=== PATIENT | female | born 1990 | race African-American/Black ===

== ENCOUNTER 2020-01-24 06:12 | Inpatient (IN) | payer MEDICAID ==
[~2020-01-24] VITALS: Ht 152.4 cm; Wt 84.8 kg
[2020-01-24] MEDS ORDERED: TERBUTALINE 1 MG/ML VIAL. SQ PRN (06:15)
[2020-01-24] MEDS ORDERED: BUTORPHANOL 2 MG/ML VIAL. IVP PRN (06:15)
[2020-01-24] MEDS ORDERED: ACETAMINOPHEN 325 MG TABLET. PO PRN ×2 (06:15→20:15)
[2020-01-24] MEDS ORDERED: 0.9 % SODIUM CHLORIDE 10 ML DISP.SYRIN. IV PRN ×2 (06:15→20:15)
[2020-01-24] MEDS ORDERED: OXYTOCIN 30 UNIT/500 ML PREMIX 500 ML IV PRN ×3 (06:15→20:15)
[2020-01-24] MEDS ORDERED: LIDOCAINE 1% PF 30 ML VIAL. INJ PRN (06:15)
[2020-01-24] MEDS: IV RINGERS,LACTATED 1000ML 1,000 ML IV SCH ×2 (07:47→11:45)
[2020-01-24 08:06] LABS: BASO % 0 % (0-3); EOS # 0.1 x10^3/uL (0.0-0.7); EOS % 2 % (0-3); HEMATOCRIT 34.7 % (36.0-47.0); LYMPH # 1.2 x10^3/uL (1.0-4.8); LYMPH % 15 % (24-48); MEAN CORPUSCULAR HEMOGLOBIN 24 pg (25-35); MEAN CORPUSCULAR HGB CONC 32 g/dL (31-37); MEAN CORPUSCULAR VOLUME 74 fL (79-100); MONO # 0.8 x10^3/uL (0.0-1.1); MONO % 10 % (0-9); NEUT # 5.5 x10^3/uL (1.8-7.7); NEUT % 72 % (31-73); PLATELET COUNT 155 x10^3/uL (140-400); RED BLOOD COUNT 4.69 x10^6/uL (3.50-5.40); RED CELL DISTRIBUTION WIDTH 14.1 % (11.5-14.5); WHITE BLOOD COUNT 7.6 x10^3/uL (4.0-11.0)
--- NOTE | 2020-01-24 09:05 | PDOC1 ---
STATIONS SUPERINTENDENT H&P Date of Admission: Date of Admission: Jan 24, 2020 at 06:12 History of Present Illness: EDC: 01/21/20 LMP: 04/16/19 HPI: The pt is a 29y @ 40.3 by L=18 presents for indxn of labor. The pt followed at [facility] for her care. The pt has had a relatively uncomplicated to date. The pt was having very mild ctxs prior to the indxn. She does not feel the ctxs are intense at this time. PMH: Denies PSH: Denies Meds: PNV All: NKDA OBHx: TSVD x 1 SH: no tob, no EtOH FH: DM mother Medications: Meds: Current Medications Medications (Trade) Dose Ordered Sig/Lisa Route PRN Reason Start Time Stop Time Status Last Admin Dose Admin Ringer's Solution 1,000 ml @ 125 mls/hr Q8H IV 01/24/20 06:14 01/24/20 07:47 Oxytocin/Sodium Chloride 500 ml @ 0 mls/hr CONT PRN IV SEE I/O RECORD 01/24/20 06:15 01/24/20 07:46 Allergies: Coded Allergies: No Known Drug Allergies (Unverified , 01/24/20) Physical Exam: PE: GENERAL: No apparent distress. Alert and oriented. HEENT: Head normocephalic, atraumatic. NECK: Supple LUNGS: Clear to auscultation. HEART: RRR, S1, S2 present, pulses intact ABDOMEN: Soft, positive bowel sounds. EXTREMITIES: No cyanosis or edema. NEUROLOGIC: Normal speech, normal tone PSYCHIATRIC: Normal affect, normal mood. SKIN: No ulceration. FHT: 140s +acels/no decels/mLTV [place]: 3-4 min SVE: 1/60/-3 Labs: Laboratory Tests Test 01/24/20 06:40 01/24/20 07:39 SARS-CoV-2 Antigen (Rapid) Negative (NEGATIVE) White Blood Count 7.6 x10^3/uL (4.0-11.0) Red Blood Count 4.69 x10^6/uL (3.50-5.40) Hemoglobin 11.0 g/dL (12.0-15.5) L Hematocrit 34.7 % (36.0-47.0) L Mean Corpuscular Volume 74 fL (79-100) L Mean Corpuscular Hemoglobin 24 pg (25-35) L Mean Corpuscular Hemoglobin Concent 32 g/dL (31-37) Red Cell Distribution Width 14.1 % (11.5-14.5) Platelet Count 155 x10^3/uL (140-400) Neutrophils (%) (Auto) 72 % (31-73) Lymphocytes (%) (Auto) 15 % (24-48) L Monocytes (%) (Auto) 10 % (0-9) H Eosinophils (%) (Auto) 2 % (0-3) Basophils (%) (Auto) 0 % (0-3) Neutrophils # (Auto) 5.5 x10^3/uL (1.8-7.7) Lymphocytes # (Auto) 1.2 x10^3/uL (1.0-4.8) Monocytes # (Auto) 0.8 x10^3/uL (0.0-1.1) Eosinophils # (Auto) 0.1 x10^3/uL (0.0-0.7) Basophils # (Auto) 0.0 x10^3/uL (0.0-0.2) Laboratory Tests 01/24/20 07:39 Laboratory Tests 01/24/20 07:39 Assessment & Plan: A/P 29y @ 40.3 by L=18 1.) Indxn on 6U of Pit 2.) Chl pos AUGUSTO neg 10/17/19 3.) Trich pos [place] neg 11/14/19 4.) Elevated GTT nml 3hr GTT x 4 5.) TDAP given 11/14/19 6.) Anemia 7.) Fetus cat I FHT 8.) GBS neg 9.) JORGE LUIS Ruiz MD Jan 24, 2020 09:05
--- NOTE | 2020-01-24 11:21 | PDOC ---
WILDLIFE BIOLOGY INTERNSHIP PROGRESS NOTE Date of Service: DATE: 01/24/20 TIME: 11:19 Subjective: Pt beginning to feel ctx's a little more Objective: Labs: Laboratory Tests Test 01/24/20 06:40 01/24/20 07:39 SARS-CoV-2 Antigen (Rapid) Negative (NEGATIVE) White Blood Count 7.6 x10^3/uL (4.0-11.0) Red Blood Count 4.69 x10^6/uL (3.50-5.40) Hemoglobin 11.0 g/dL (12.0-15.5) L Hematocrit 34.7 % (36.0-47.0) L Mean Corpuscular Volume 74 fL (79-100) L Mean Corpuscular Hemoglobin 24 pg (25-35) L Mean Corpuscular Hemoglobin Concent 32 g/dL (31-37) Red Cell Distribution Width 14.1 % (11.5-14.5) Platelet Count 155 x10^3/uL (140-400) Neutrophils (%) (Auto) 72 % (31-73) Lymphocytes (%) (Auto) 15 % (24-48) L Monocytes (%) (Auto) 10 % (0-9) H Eosinophils (%) (Auto) 2 % (0-3) Basophils (%) (Auto) 0 % (0-3) Neutrophils # (Auto) 5.5 x10^3/uL (1.8-7.7) Lymphocytes # (Auto) 1.2 x10^3/uL (1.0-4.8) Monocytes # (Auto) 0.8 x10^3/uL (0.0-1.1) Eosinophils # (Auto) 0.1 x10^3/uL (0.0-0.7) Basophils # (Auto) 0.0 x10^3/uL (0.0-0.2) Treponema pallidum Antibody Nonreactive (Nonreactive) Laboratory Tests 01/24/20 07:39 Laboratory Tests 01/24/20 07:39 Physical Exam: GENERAL: No apparent distress. Alert and oriented. HEENT: Head normocephalic, atraumatic. NECK: Supple LUNGS: Clear to auscultation. HEART: RRR, S1, S2 present, pulses intact ABDOMEN: Soft, positive bowel sounds. EXTREMITIES: No cyanosis or edema. NEUROLOGIC: Normal speech, normal tone PSYCHIATRIC: Normal affect, normal mood. SKIN: No ulceration. FHT: 130's +acels/no decels/mLTV [place]: 2-3 min SVE: 50/-3 Assessment & Plan: A/P 29y @ 40.3 by L=18 1.) Indxn on 14U of Pit, AROM - clear (1115) 2.) Chl pos AUG[place]O neg 10/17/19 3.) Trich pos [place] neg 11/14/19 4.) Elevated GTT nml 3hr GTT x 4 5.) TDAP given 11/14/19 6.) Anemia 7.) Fetus cat I FHT, vtx 8.) GBS neg 9.) Boy JORGE LUIS Mehta MD Jan 24, 2020 11:21
[2020-01-24] MEDS ORDERED: L&D EPIDURAL SYRINGE 50 ML ONE (11:51)
[2020-01-24] MEDS ORDERED: ROPIVacaine 0.2% PF 10 ML VIAL. ONE ×2 (11:51→12:00)
[2020-01-24] MEDS ORDERED: L&D EPIDURAL 50 ML SYRINGE. ONE (12:00)
[2020-01-24] MEDS ORDERED: CITRIC ACID/SODIUM CITRATE 30 ML SOLUTION. ONE ×2 (12:00→18:38)
[2020-01-24] MEDS ORDERED: IV RINGERS,LACTATED 1000ML 1,000 ML IV SCH (12:29)
[2020-01-24] MEDS ORDERED: NALOXONE 0.4 MG/ML VIAL. IV PRN (12:30)
[2020-01-24] MEDS ORDERED: PHENYLEPHRINE in 0.9% NACL PF 1 MG/10 ML SYRINGE. IV PRN (12:30)
[2020-01-24] MEDS ORDERED: L&D EPIDURAL SYRINGE 50 ML EPID PRN (12:30)
[2020-01-24] MEDS ORDERED: ROPIVacaine 0.2% PF 10 ML VIAL. EPID PRN (12:30)
[2020-01-24] MEDS ORDERED: ePHEDrine PF IN SALINE 50 MG/10 ML SYRINGE. IV PRN (12:30)
[2020-01-24] MEDS ORDERED: BUPIVACAINE MPF 0.25% 30 ML VIAL. EPID PRN (12:30)
[2020-01-24] MEDS ORDERED: IV RINGERS,LACTATED 500ML 500 ML IV PRN (12:30)
[2020-01-24] MEDS ORDERED: ATROPINE 0.5 MG/5 ML DISP.SYRINGE. IV PRN (12:30)
[2020-01-24] MEDS ORDERED: fentaNYL PF VIAL 100 MCG/2 ML VIAL EPID PRN (12:30)
[2020-01-24] MEDS ORDERED: IV NORMAL SALINE 1000ML BAG 1,000 ML IV SCH (18:30)
[2020-01-24] MEDS ORDERED: AZITHROMYCIN 500 MG in IV NORMAL SALINE 250ML 250 ML IV ONE (18:30)
[2020-01-24] MEDS ORDERED: LIDOCAINE 2% PF 5 ML VIAL. ONE ×5 (18:34→19:13)
[2020-01-24] MEDS ORDERED: SUCCINYLCHOLINE 200 MG/10 ML VIAL. ONE (18:44)
[2020-01-24] MEDS ORDERED: ceFAZolin 2GM PREMIX 2 GM/50 ML BAG IV ONE (19:00)
[2020-01-24] MEDS ORDERED: MORPHINE PF 10 MG/10 ML AMPUL. ONE (19:09)
[2020-01-24] MEDS ORDERED: CHLOROPROCAINE 3% MPF 20 ML VIAL. ONE (19:17)
[2020-01-24] MEDS ORDERED: OXYTOCIN 10 UNIT/ML VIAL. ONE ×4 (19:23→20:08)
--- NOTE | 2020-01-24 19:48 | PDOC4 ---
OPERATIVE NOTE: PreOp Dx: 1.) IUP @ 40.3 by L=18, 2.) Indxn, 3.) Arrest of decent, 4.) Failed vacuum, 5.) Chl pos [place] neg 10/17/19, 6.) Trich pos [place] neg 11/14/19, 7.) Elevated GTT nml 3hr GTT x 4, 8.) Anemia, 9.) GBS neg PostOp Dx: same Procedure: primary LTCS Surgeon: Shira Hernandez Anesthesia: Epidural EBL: 1000cc Fluids: 1200cc UOP: 100cc Complications: None Findings: viable male infant delivered at 1906. Wt 9lb 2oz. APGARS 8/9 Path: Cord blood JORGE LUIS HERNANDEZ MD Jan 24, 2020 19:48
[2020-01-24] MEDS ORDERED: PROPOFOL 10 MG/ML (20ML) VIAL. IV ONE (20:08)
[2020-01-24] MEDS ORDERED: MMR per PROTOCOL. MC PRN (20:15)
[2020-01-24] MEDS ORDERED: oxyCODONE/APAP 5/325 1 TAB TABLET PO PRN (20:15)
[2020-01-24] MEDS ORDERED: diphenhydrAMINE ORAL ELIXIR 12.5 MG/5 ML ML PO PRN (20:15)
[2020-01-24] MEDS ORDERED: TDaP (Adacel) per PROTOCOL. MC PRN (20:15)
[2020-01-24] MEDS ORDERED: BENZOCAINE 20% TOPICAL AEROSOL SPRAY 57GM CAN. TP PRN (20:15)
--- NOTE | 2020-01-24 20:31 | OP ---
DATE OF SURGERY: 01/24/2020 PREOPERATIVE DIAGNOSES: 1. Intrauterine at 40 weeks and 3 days by LMP equal to 18-week ultrasound. 2. Induction of labor. 3. Arrest of descent. 4. Failed vacuum. 5. History of chlamydia with a negative treatment of cure. 6. History of Trichomonas with a negative treatment of cure. 7. Elevated glucose tolerance test with normal 3-hour glucose tolerance test. 8. Anemia. 9. GBS negative. POSTOPERATIVE DIAGNOSES: 1. Intrauterine at 40 weeks and 3 days by LMP equal to 18-week ultrasound. 2. Induction of labor. 3. Arrest of descent. 4. Failed vacuum. 5. History of chlamydia with a negative treatment of cure. 6. History of Trichomonas with a negative treatment of cure. 7. Elevated glucose tolerance test with normal 3-hour glucose tolerance test. 8. Anemia. 9. GBS negative. POSTOPERATIVE DIAGNOSIS. PROCEDURE: Primary low transverse . SURGEON: Etienne Hernandez MD ANESTHESIA: Epidural with Duramorph. ESTIMATED BLOOD LOSS: 1000 mL. FLUIDS: 1200 mL. URINE OUTPUT: 100 mL. COMPLICATIONS: None. FINDINGS: Viable male infant delivered at 1906 hours, weighing 9 pounds 2 ounces with Apgars of 8 and 9. Normal maternal anatomy noted. Cord ABG pending. PATHOLOGY: Cord blood. INDICATIONS: The patient is a 29-year-old 2, para 1-0-0-1, who presented to Labor and Delivery at 40 weeks and 3 days by LMP equal to 18-week ultrasound for induction of labor. The patient was started on Pitocin and progressed throughout the day. Around 1100 hours the patient's membranes were ruptured. Approximately at 1700 hours, the patient was found to be complete, complete, 0. At that time, pushing was commenced. The patient pushed over the next hour and around 1756 hours, discussion was held with the patient regarding vacuum-assisted delivery. Discussed the risk of cephalohematoma, retinal hemorrhage, scalp laceration as well as intracranial hemorrhage, which occurred 1 in 900, similar to what would be expected with a . The patient was willing to proceed. With the next few contractions, the vacuum was applied. The vacuum was removed in between contractions due to potential that the redundant vaginal tissue could be captured into the vacuum. Around 1810 hours, the vacuum was removed and attempts were made to push without the vacuum, no significant descent was made. At that time, the vacuum was placed on and with the next 2 contractions, very little descent was made. A discussion was held with the patient that the baby was likely not to come vaginally and we should move towards section. Around 1830 hours, the OR was notified for a section. Of note, when the Swift was replaced back in, it was some blood-tinged due to the amount of pushing that was performed. DESCRIPTION OF PROCEDURE: The patient was taken to the operating room where her epidural was redosed. The patient was prepped and draped in a normal sterile fashion with a left lateral tilt. A Pfannenstiel skin incision was made approximately 2 cm above her pubic symphysis and carried down to the underlying layer of fascia. The fascia was then nicked in the midline. The fascial incision was then extended laterally with Richards scissors. The superior aspect of the fascial incision was grasped with Jane clamps, elevated and underlying rectus muscle was dissected off bluntly with Richards scissors. Attention was then turned to the inferior aspect of fascial incision, which was grasped with Jane clamps, elevated and underlying rectus muscle was dissected off with Richards scissors. The midline of the rectus muscle was then identified. The peritoneum was then grasped with 2 hemostats and tented up and entered sharply with Metzenbaum scissors. The peritoneal incision was then extended superiorly and inferiorly with good visualization of the bladder with traction and countertraction. At that point, the Del ring was placed into the patient's abdomen to gain better view of the lower uterine segment. Bladder flap was then created with Metzenbaum scissors. The lower uterine segment was then incised in transverse fashion with the scalpel. The incision was then extended with traction and countertraction. The infant's head was then flexed and brought to the hysterotomy. The rest of the infant was delivered atraumatically. The nose and mouth were bulb suctioned. Cord was double clamped and cut and infant was handed over to the awaiting line camera operator. Cord blood was obtained. Placenta was then removed manually and the uterus was then cleared of all clots and debris. Incision was then repaired with #1 chromic in a running locked fashion. A second layer of the same suture was used to imbricate. Good hemostasis was noted. At that point, the gutters were copiously irrigated and cleared of all clots and debris. The peritoneum was then reapproximated with 2-0 Vicryl in a running fashion. Muscle was reapproximated with 2-0 Vicryl in a running fashion. The fascia was then closed with 0 Vicryl in a running fashion. The skin was then closed with 3-0 Monocryl in a subcuticular manner. The patient tolerated the procedure well. Sponge, laps, and needles were correct x 3. Two grams of Ancef as well as azithromycin 500 mg were given prior due to the patient being ruptured and in active labor. The patient tolerated the procedure well and was taken to the recovery room in stable condition. ETIENNE HERNANDEZ MD DR: JASON/kerwin JOB#: [id number] / [id number] [place]
[2020-01-24] MEDS: KETOROLAC 30 MG/ML VIAL. IVP PRN (21:42)
[2020-01-24 22:56] VITALS: BP 99/55
[2020-01-25] MEDS: IV RINGERS,LACTATED 1000ML 1,000 ML IV SCH (02:00)
[2020-01-25 02:02] VITALS: BP 96/56
[2020-01-25 07:16] VITALS: BP 98/56
[2020-01-25 07:17] LABS: HEMATOCRIT 28.9 % (36.0-47.0); HEMOGLOBIN 9.3 g/dL (12.0-15.5); RED BLOOD COUNT 3.9 x10^6/uL (3.50-5.40); RED CELL DISTRIBUTION WIDTH 14.3 % (11.5-14.5); WHITE BLOOD COUNT 15.7 x10^3/uL (4.0-11.0)
[2020-01-25] MEDS ORDERED: PRENATAL MULTIVITAMIN TABLET. PO SCH (09:00)
[2020-01-25] MEDS: FERROUS SULFATE 325 MG TABLET. PO SCH ×2 (09:52→18:12)
[2020-01-25] MEDS: MULTIVITAMIN with MINERAL TABLET. PO SCH (09:52)
[2020-01-25] MEDS: DOCUSATE SODIUM 100 MG CAPSULE. PO PRN ×2 (09:52→19:01)
--- NOTE | 2020-01-25 11:29 | PDOC ---
INFORMATION SYSTEMS ADMINISTRATOR PROGRESS NOTE Date of Service: DATE: 01/25/20 TIME: 11:27 Subjective: Pt with good pain control. Rylie PO. Voiding. Minimal lochia. Objective: Vital Signs: Vital Signs Date Time Temp Pulse Resp B/P (MAP) Pulse Ox O2 Delivery O2 Flow Rate FiO2 01/24/20 15:38 16 Room Air 01/24/20 22:56 99.0 84 99/55 (70) 99 99.0 Vital Signs Date Time Temp Pulse Resp B/P (MAP) Pulse Ox O2 Delivery O2 Flow Rate FiO2 01/25/20 07:16 98.3 68 98/56 (70) 96 98.3 01/24/20 22:56 Room Air 01/24/20 15:38 16 Labs: Laboratory Tests Test 01/25/20 06:05 White Blood Count 15.7 x10^3/uL (4.0-11.0) H Red Blood Count 3.90 x10^6/uL (3.50-5.40) Hemoglobin 9.3 g/dL (12.0-15.5) L Hematocrit 28.9 % (36.0-47.0) L Mean Corpuscular Volume 74 fL (79-100) L Mean Corpuscular Hemoglobin 24 pg (25-35) L Mean Corpuscular Hemoglobin Concent 32 g/dL (31-37) Red Cell Distribution Width 14.3 % (11.5-14.5) Platelet Count 138 x10^3/uL (140-400) L Laboratory Tests 01/25/20 06:05 Laboratory Tests 01/25/20 06:05 Physical Exam: GENERAL: No apparent distress. Alert and oriented. HEENT: Head normocephalic, atraumatic. NECK: Supple LUNGS: Clear to auscultation. HEART: RRR, S1, S2 present, pulses intact ABDOMEN: Soft, positive bowel sounds. EXTREMITIES: No cyanosis or edema. NEUROLOGIC: Normal speech, normal tone PSYCHIATRIC: Normal affect, normal mood. SKIN: No ulceration. FFNT below umb Inc: C/D/I, no e/e no C/C/E Assessment & Plan: A/P 29y POD #1 s/p primary LTCS 1.) PO - doing well 2.) TDAP given 11/14/19 3.) Anemia - Hgb 11.0 -> 9.3, on Fe BID 4.) JORGE LUIS Ruiz MD Jan 25, 2020 11:29
[2020-01-25] MEDS: KETOROLAC 30 MG/ML VIAL. IVP PRN (11:32)
[2020-01-25] MEDS: oxyCODONE/APAP 5/325 1 TAB TABLET PO PRN ×3 (13:14→23:53)
[2020-01-25 13:30] VITALS: BP 97/49
[2020-01-25 18:15] VITALS: BP 96/44
[2020-01-25 19:40] VITALS: BP 103/52
[2020-01-25] MEDS: IBUPROFEN 400 MG TABLET. PO PRN (19:47)
[2020-01-26] MEDS: IBUPROFEN 400 MG TABLET. PO PRN ×2 (03:59→15:26)
[2020-01-26] MEDS: oxyCODONE/APAP 5/325 1 TAB TABLET PO PRN ×2 (03:59→19:21)
[2020-01-26 04:00] VITALS: BP 112/71
[2020-01-26] MEDS: DOCUSATE SODIUM 100 MG CAPSULE. PO PRN ×3 (08:39→19:21)
[2020-01-26] MEDS: MULTIVITAMIN with MINERAL TABLET. PO SCH (08:39)
[2020-01-26] MEDS: FERROUS SULFATE 325 MG TABLET. PO SCH ×2 (08:39→18:20)
--- NOTE | 2020-01-26 11:10 | NUR ---
Percocet 0840 Scanned 2 percocet at this time, patient decided she only wanted one. Second Percocet returned to [facility]. Will monitor pain
[2020-01-26 11:21] VITALS: BP 106/68
[2020-01-26] MEDS ORDERED: OXYC1TAB15 PO (11:21)
[2020-01-26] MEDS ORDERED: DOCU-109 PO (11:21)
[2020-01-26] MEDS ORDERED: IBUP-1060 PO (11:21)
[2020-01-26] MEDS ORDERED: FERR325T14 PO (11:21)
--- NOTE | 2020-01-26 11:25 | PDOC ---
MEDICAL DETAIL REPRESENTATIVE PROGRESS NOTE Date of Service: DATE: 01/26/20 TIME: 11:21 Subjective: Pt with good pain control. Rylie PO. Voiding. Minimal lochia Objective: Vital Signs: Vital Signs Date Time Temp Pulse Resp B/P (MAP) Pulse Ox O2 Delivery O2 Flow Rate FiO2 01/25/20 07:16 98.3 68 98/56 (70) 96 98.3 01/25/20 13:14 18 01/25/20 13:30 Room Air Vital Signs Date Time Temp Pulse Resp B/P (MAP) Pulse Ox O2 Delivery O2 Flow Rate FiO2 01/26/20 08:39 18 Room Air 01/26/20 04:00 97.8 68 112/71 (85) 99 97.8 Physical Exam: GENERAL: No apparent distress. Alert and oriented. HEENT: Head normocephalic, atraumatic. NECK: Supple LUNGS: Clear to auscultation. HEART: RRR, S1, S2 present, pulses intact ABDOMEN: Soft, positive bowel sounds. EXTREMITIES: No cyanosis or edema. NEUROLOGIC: Normal speech, normal tone PSYCHIATRIC: Normal affect, normal mood. SKIN: No ulceration. FFNT below umb Inc: C/D/I, no e/e no C/C/E Assessment & Plan: A/P 29y POD #2 s/p primary LTCS 1.) PO - doing well 2.) TDAP given 11/14/19 3.) Anemia - Hgb 11.0 -> 9.3, on Fe BID 4.) JORGE LUIS Ruiz MD Jan 26, 2020 11:25
[2020-01-26] MEDS: SIMETHICONE 80 MG TAB.CHEW PO PRN ×2 (13:23→15:26)
[2020-01-26 18:36] VITALS: BP 99/58
[2020-01-26 19:15] VITALS: BP 109/70
[2020-01-27] MEDS: IBUPROFEN 400 MG TABLET. PO PRN ×2 (00:03→08:33)
[2020-01-27] MEDS: oxyCODONE/APAP 5/325 1 TAB TABLET PO PRN ×3 (00:04→08:34)
[2020-01-27 04:10] VITALS: BP 103/57
[2020-01-27 07:30] VITALS: BP 120/72
--- NOTE | 2020-01-27 08:14 | PDOC ---
ARMATURE VARNISHER PROGRESS NOTE Date of Service: DATE: 01/27/20 TIME: 08:13 Subjective: Pt with good pain control. Rylie PO. Voiding. Minimal lochia Objective: Vital Signs: Vital Signs Date Time Temp Pulse Resp B/P (MAP) Pulse Ox O2 Delivery O2 Flow Rate FiO2 01/26/20 08:39 18 Room Air 01/26/20 11:21 98.2 88 106/68 (81) 97 98.2 Vital Signs Date Time Temp Pulse Resp B/P (MAP) Pulse Ox O2 Delivery O2 Flow Rate FiO2 01/27/20 07:30 97.8 76 18 120/72 (88) 100 Room Air 97.8 Physical Exam: GENERAL: No apparent distress. Alert and oriented. HEENT: Head normocephalic, atraumatic. NECK: Supple LUNGS: Clear to auscultation. HEART: RRR, S1, S2 present, pulses intact ABDOMEN: Soft, positive bowel sounds. EXTREMITIES: No cyanosis or edema. NEUROLOGIC: Normal speech, normal tone PSYCHIATRIC: Normal affect, normal mood. SKIN: No ulceration. FFNT below umb Inc: C/D/I, no e/e no C/C/E Assessment & Plan: A/P 29y POD #3 s/p primary LTCS 1.) PO - doing well 2.) TDAP given 11/14/19 3.) Anemia - Hgb 11.0 -> 9.3, on Fe BID 4.) Boy AShdeon 5.) d/c home JORGE LUIS HERNANDEZ MD Jan 27, 2020 08:14
[2020-01-27] MEDS: DOCUSATE SODIUM 100 MG CAPSULE. PO PRN (08:33)
[2020-01-27] MEDS: MULTIVITAMIN with MINERAL TABLET. PO SCH (08:33)
[2020-01-27] MEDS: FERROUS SULFATE 325 MG TABLET. PO SCH (08:33)
[2020-01-27 11:31] VITALS: BP 105/65
--- NOTE | 2020-01-27 11:55 | NUR ---
Discharge and follow instructions reviewed and given to pt along with 4 Rxs. Appointment made for Jan 29 at 1pm at [facility] clinic with Dr. Cárdenas. Pt verbalized understanding. Pt ambulated out of the hospital with staff and her S/O and by her side.
--- NOTE | 2020-01-28 10:39 | DS ---
DATE OF DISCHARGE: 01/27/2020 ADMISSION DIAGNOSES: 1. Intrauterine at 40 weeks and 3 days by last menstrual period equal to 18-week ultrasound. 2. Induction of labor. 3. History of chlamydia, with negative treatment of cure. 4. History of Trichomonas, with negative treatment of cure. 5. Elevated glucose tolerance tests, with a normal 3-hour glucose tolerance test. 6. Status post Tdap. 7. Anemia. 8. GBS negative. DISCHARGE DIAGNOSES: 1. Intrauterine at 40 weeks and 3 days by last menstrual period equal to 18-week ultrasound. 2. Induction of labor. 3. History of chlamydia, with negative treatment of cure. 4. History of Trichomonas, with negative treatment of cure. 5. Elevated glucose tolerance tests, with a normal 3-hour glucose tolerance test. 6. Status post Tdap. 7. Anemia. 8. GBS negative. PROCEDURE: Primary low transverse . BRIEF HOSPITAL COURSE: The patient is a 29-year-old 2, para 1-0-0-1, who presented to Labor and Delivery at 40 weeks and 3 days by LMP equal to 18-week ultrasound for induction of labor. The patient was started on Pitocin that morning and progressed throughout the day Around 11:00, the patient's membranes were ruptured. Approximately around 1700, the patient became complete and pushing was initiated. After roughly an hour's time, vacuum was attempted. The fetus continued not to make significant descent and decision was made for section. The patient underwent the said procedure. See operative note for full detail. By postoperative day #3, the patient was meeting all discharge criteria and subsequently was discharged home. Of note, the patient's admission hemoglobin was 11.0, with a postoperative value found to be 9.3. DISCHARGE INSTRUCTIONS: The patient was told not to lift anything greater than 20 pounds, have pelvic rest for 6 weeks, not to drive on narcotics. CALL IF: The patient was to call if she had fevers, chills, nausea, vomiting, abdominal pain or any additional questions or concerns. FOLLOWUP APPOINTMENT: The patient was to follow up with me in 1 week, either in my office or [place] [facility] [place] her incision check. DISCHARGE MEDICATIONS: The patient was given a prescription for Percocet 5, 15 pills; Motrin 800 mg, 30 pills; Colace 100 mg 30 pills; and ferrous sulfate 325 mg, 30 pills. JORGE LUIS HERNANDEZ MD DR: Maegan JOB#: [id number] / [id number]
== END 2020-01-27 11:55 | disposition home or self-care (01) | DRG 788 ==
LOC: 3 SO LND 06:12 → 3 NORTH 22:17
PROVIDERS: ADMIT Obstetrics & Gynecology; ATTEND Obstetrics & Gynecology
PROC: 10D00Z1 Extraction of Products of Conception, Low, Open Approach (ICD-10-PCS; principal; 2020-01-24)
PROC: 3E033VJ Introduction of Other Hormone into Peripheral Vein, Percutaneous Approach (ICD-10-PCS; 2020-01-24)
DX: O48.0 Post-term pregnancy (principal); O99.02 Anemia complicating childbirth; D64.9 Anemia, unspecified; Z20.828 Contact with and (suspected) exposure to other viral communicable diseases; O62.1 Secondary uterine inertia; Z37.0 Single live birth; Z3A.40 40 weeks gestation of pregnancy; Z83.3 Family history of diabetes mellitus
CPT/HCPCS: 36415; 85025; 85027; 86592; 86850; 86900; 86901; 87426; J0330; J0690; J1885; J2274; J2400; J2590; J2704; J2795; J3010; J7120; G0378; U0003-CS

== ENCOUNTER 2020-11-01 19:33 | Emergency (ER) | payer MEDICAID, OTHER ==
[~2020-11-01] VITALS: Ht 152.4 cm; Wt 60.5 kg
[~2020-11-01 19:33] MED LIST: DOCU-109 PO; FERR325T14 PO; IBUP-1060 PO; OXYC1TAB15 PO
[2020-11-01 19:55] VITALS: BP 130/76
--- NOTE | 2020-11-01 21:01 | RAD ---
Exam: Chest one view INDICATION: Cough TECHNIQUE: Frontal view of the chest Comparisons: None FINDINGS: The cardiomediastinal silhouette and pulmonary vessels are within normal limits. The lung and pleural spaces are clear. IMPRESSION: No acute cardiopulmonary process. Electronically signed by: Jase Ma MD (11/01/2020 8:58 PM) MARIA ELENA
--- NOTE | 2020-11-01 21:11 | PHYS DOC ---
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 She is not vaccinated. She denies SOA, chest pain, dizziness, syncope, abdominal pain, nausea, vomiting, diarrhea. Rates her headache at a 5 out of 10 at this time. (YANICK MORAN ALUMINUM MOLDING MACHINE OPERATOR) Review of Systems: Review of Systems: Constitutional: Denies fever or chills. [] Eyes: Denies change in visual acuity. [] HENT: Denies nasal congestion or sore throat. + Loss of taste [] Respiratory: + cough or denies shortness of breath. [] Cardiovascular: Denies chest pain or edema. [] GI: Denies abdominal pain, nausea, vomiting, bloody stools or diarrhea. [] : Denies dysuria. [] Musculoskeletal: Denies back pain or joint pain. [] Integument: Denies rash. [] Neurologic: + headache, denies focal weakness or sensory changes. [] Endocrine: Denies polyuria or polydipsia. [] Lymphatic: Denies swollen glands. [] Psychiatric: Denies depression or anxiety. [] (YANICK MORAN ALUMINUM MOLDING MACHINE OPERATOR) Heart Score: C/O Chest Pain: No Risk Factors: Risk Factors: DM, Current or recent (<one month) smoker, HTN, HLP, family history of CAD, obesity. 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 [] HENT: Normocephalic, atraumatic, bilateral external ears normal, oropharynx moist, no oral exudates, nose normal. [] Eyes: PERRLA, EOMI, conjunctiva normal, no discharge. [] Neck: Normal range of motion, no tenderness, supple, no stridor. [] Cardiovascular:Heart rate regular rhythm, no murmur [] Lungs & Thorax: Bilateral breath sounds clear to auscultation [] Abdomen: Bowel sounds normal, soft, no tenderness, no masses, no pulsatile masses. [] Skin: Warm, dry, no erythema, no rash. [] Back: No tenderness, no CVA tenderness. [] Extremities: No tenderness, no cyanosis, no clubbing, ROM intact, no edema. [] Neurologic: Alert and oriented X 3, normal motor function, normal sensory function, no focal deficits noted. [] Psychologic: Affect normal, judgement normal, mood normal. Normal physical exam [] (YANICK MORAN APRN) Current Patient Data: Vital Signs: Vital Signs Date Time Temp Pulse Resp B/P (MAP) Pulse Ox O2 Delivery O2 Flow Rate FiO2 11/01/20 19:55 98.0 80 18 130/76 (94) 98 Room Air 98.0 (YANICK MORAN APRN) EKG: EKG: [] (YANICK MORAN APRN) Radiology/Procedures: Radiology/Procedures: [] Impression: [facility] [address] [place] [address] IMAGING REPORT Signed PATIENT: RAMAKRISHNA SUAREZ ACCOUNT: [id number] : 1990 LOCATION: ER AGE: 30 SEX: F EXAM STATUS: REG ER ORD. PHYSICIAN: YANICK MORAN APRN REASON: PREG TEST/cough PROCEDURE: PORTABLE CHEST 1V Exam: Chest one view INDICATION: Cough TECHNIQUE: Frontal view of the chest Comparisons: None FINDINGS: The cardiomediastinal silhouette and pulmonary vessels are within normal limits. The lung and pleural spaces are clear. IMPRESSION: No acute cardiopulmonary process. Electronically signed by: Jase Perez MD (11/01/2020 8:58 PM) [facility] DICTATED and SIGNED BY: JASE PEREZ MD DATE: 11/01/20 [id number] (YANICK MORAN APRN) Course & Med Decision Making: Course & Med Decision Making Pertinent Labs and Imaging studies reviewed. (See chart for details) COVID-19 CRITERIA: The patient was evaluated during the global COVID-19 pandemic, and that diagnosis was suspected/considered upon their initial presentation. Their evaluation, treatment and testing was consistent with current guidelines for patients who present with complaints or symptoms that may be related to COVID-19. See HPI. Alert and oriented x4. Ambulatory with steady gait. Speaks in full clear sentences. Skin pink warm and dry. Vital signs within normal limits. Lungs are clear to auscultation all lobes. Chest x-ray shows no acute findings. [] (YANICK MORAN APRN) Course & Med Decision Making Patients Care and treatment plan provided by ER Nurse Practitioner. I was available for consult. Patient's chart reviewed. (ZARA MARES DO) David Disclaimer: David Disclaimer: This electronic medical record was generated, in whole or in part, using a voice recognition dictation system. (YANICK MORAN APRN) COVID-19 Patient Risks: Age 65 or older: No Sign of co-morbidity: No Exp to person + for COVID: No Exp to PUI: No Travel from affected area: No Lower respiratory symptoms: Yes Fever: No Other: No (YANICK MORAN APRN) PPE Use: Full PPE with N95 mask or PAPR: Yes (YANICK MORAN APRN) Departure Departure Impression: Primary Impression: Cough Additional Impression: Person under investigation for COVID-19 Disposition: HOME / SELF CARE / HOMELESS Condition: STABLE Referrals: NO PCP (PCP) Patient Instructions: Cough, Adult Additional Instructions: Follow-up with your primary care provider. Drink plenty of fluids. Use inhaler as prescribed if needed. You need to self isolate until you get your results back. Scripts Albuterol Sulfate (PROAIR HFA INHALER) 8.5 Gm Hfa.aer.ad 1 PUFF INH PRN Q6HRS PRN for SHORTNESS OF BREATH, #1 EACH 0 Refills Prov: YANICK MORAN APRN 11/01/20 YANICK MORAN APRN Nov 01, 2020 21:11 ZARA MARES DO Nov 03, 2020 04:59
[2020-11-01] MEDS ORDERED: ALBU2.5V8 INH (21:40)
== END 2020-11-01 21:54 | disposition home or self-care (01) ==
LOC: ER 19:33
DX: R05 Cough (principal); Z20.822 Contact with and (suspected) exposure to COVID-19; R51.9 Headache, unspecified; R43.8 Other disturbances of smell and taste
CPT/HCPCS: 71045; 99284; U0003

== ENCOUNTER 2021-01-19 20:18 | Emergency (ER) | payer OTHER ==
[~2021-01-19 20:18] MED LIST changes: +ALBU2.5V8 INH
[2021-01-20] MEDS ORDERED: NEOM10DR32 AD (08:13)
== END 2021-01-19 21:15 | disposition left against medical advice (07) ==
LOC: ER 20:18
DX: H92.03 Otalgia, bilateral (principal); Z53.21 Procedure and treatment not carried out due to patient leaving prior to being seen by health care provider

== ENCOUNTER 2021-01-20 06:11 | Emergency (ER) | payer OTHER ==
[~2021-01-20] VITALS: Ht 152.4 cm; Wt 62.7 kg
[2021-01-20] MEDS ORDERED: NEOM10DR32 AD (08:13)
--- NOTE | 2021-01-20 08:13 | PHYS DOC ---
Past Medical History Past Medical History: No Pertinent History Past Surgical History: No Surgical History Smoking Status: Never Smoker Alcohol Use: None General Adult EDM: Chief Complaint: EARACHE/EAR PAIN HPI: HPI: Patient is a 30 year old female who present to ER for evaluation of right ear pain that been going on for couple days. Patient denied headache, no cough, no fever Review of Systems: Review of Systems: Constitutional: Denies fever or chills. [] Eyes: Denies change in visual acuity. [] HENT: Denies nasal congestion or sore throat. Positive for right ear pain. Respiratory: Denies cough or shortness of breath. [] Cardiovascular: Denies chest pain or edema. [] GI: Denies abdominal pain, nausea, vomiting, bloody stools or diarrhea. [] : Denies dysuria. [] Musculoskeletal: Denies back pain or joint pain. [] Integument: Denies rash. [] Neurologic: Denies headache, focal weakness or sensory changes. [] Endocrine: Denies polyuria or polydipsia. [] Lymphatic: Denies swollen glands. [] Psychiatric: Denies depression or anxiety. [] Heart Score: C/O Chest Pain: N/A Risk Factors: Risk Factors: DM, Current or recent (<one month) smoker, HTN, HLP, family history of CAD, obesity. Risk Scores: Score 0 - 3: 2.5% MACE over next 6 weeks - Discharge Home Score 4 - 6: 20.3% MACE over next 6 weeks - Admit for Clinical Observation Score 7 - 10: 72.7% MACE over next 6 weeks - Early Invasive Strategies Allergies: Allergies: Allergies Coded Allergies Type Severity Reaction Last Updated Verified No Known Drug Allergies 01/24/20 No Physical Exam: PE: Constitutional: Well developed, well nourished, no acute distress, non-toxic appearance. [] HENT: Normocephalic, atraumatic, right external ear canal is slightly swollen right TM appear to be normal, oropharynx moist, no oral exudates, nose normal. [] Eyes: PERRLA, EOMI, conjunctiva normal, no discharge. [] Neck: Normal range of motion, no tenderness, supple, no stridor. [] Cardiovascular:Heart rate regular rhythm, no murmur [] Lungs & Thorax: Bilateral breath sounds clear to auscultation [] Neurologic: Alert and oriented X 3, normal motor function, normal sensory function, no focal deficits noted. [] Psychologic: Affect normal, judgement normal, mood normal. [] Current Patient Data: Vital Signs: Vital Signs Date Time Temp Pulse Resp B/P (MAP) Pulse Ox O2 Delivery O2 Flow Rate FiO2 01/20/21 07:41 98.4 82 16 115/61 (94) 99 Room Air 98.4 EKG: EKG: [] Radiology/Procedures: Radiology/Procedures: [] Course & Med Decision Making: Course & Med Decision Making Pertinent Labs and Imaging studies reviewed. (See chart for details) [] Dragon Disclaimer: [employer] Disclaimer: This electronic medical record was generated, in whole or in part, using a voice recognition dictation system. Departure Departure Impression: Primary Impression: Otitis externa Disposition: HOME / SELF CARE / HOMELESS Condition: STABLE Referrals: NO PCP (PCP) Patient Instructions: Otitis Externa Additional Instructions: Thank you for visiting our Emergency Department. We appreciate you trusting us with your care. If any additional problems come up don't hesitate to return to visit us. Please follow up with your primary care provider so they can plan additional care if needed and know about the problem that you had. If symptoms worsen come back to the Emergency Department. Any concerning symptoms that start such as chest pain, shortness of air, weakness or numbness on one side of the body, running high fevers or any other concerning symptoms return to the ER. Scripts Neomycin/Polymyxin B Sulf/Hc ([id number] EAR SUSP) 10 Ml Drops.susp 4 DROP AD TID for 7 Days, #10 ML 0 Refills Prov: DERICK YOUNGER DO 01/20/21 DERICK YOUNGER DO Jan 20, 2021 08:13
[2021-01-20 08:33] VITALS: BP 109/76
== END 2021-01-20 08:33 | disposition home or self-care (01) ==
LOC: ER 06:11
DX: H60.91 Unspecified otitis externa, right ear (principal)
CPT/HCPCS: 99283

== ENCOUNTER 2021-08-18 18:13 | Emergency (ER) | payer OTHER ==
[~2021-08-18] VITALS: Ht 152.4 cm; Wt 64.0 kg
[~2021-08-18 18:13] MED LIST changes: +NEOM10DR32 AD
[2021-08-18 18:30] VITALS: BP 138/80
[2021-08-18] MEDS ORDERED: KETOROLAC 30 MG/ML VIAL. IM ONE (19:00)
--- NOTE | 2021-08-18 19:04 | PHYS DOC ---
Past Medical History Past Medical History: No Pertinent History Past Surgical History: No Surgical History Smoking Status: Never Smoker Alcohol Use: None General Adult EDM: Chief Complaint: ANKLE PROBLEM HPI: HPI: Patient is a 31 year old female who presents with right ankle pain. Last night, patient states she was getting up out of her bed, when her left foot slipped on one of her son's toys. She then rolled her right ankle. She reports that the injury was an inversion injury. She was not able to ambulate immediately after. Patient states that she stayed home from work yesterday and today. Patient reports lateral ankle swelling and pain that extends medially. She has no other injuries or complaints at this time. Review of Systems: Review of Systems: ROS negative or noncontributory except as mentioned in HPI. Heart Score: C/O Chest Pain: No Current Medications: Current Medications Medications (Trade) Dose Ordered Sig/Lisa Start Time Stop Time Status Last Admin Dose Admin Ketorolac Tromethamine (Toradol 30mg Vial) 30 mg 1X ONCE 08/18/21 19:00 08/18/21 19:01 Allergies: Allergies: Allergies Coded Allergies Type Severity Reaction Last Updated Verified No Known Drug Allergies 01/24/20 No Physical Exam: PE: Constitutional: Well developed, well nourished, no acute distress, non-toxic appearance. HENT: Normocephalic, atraumatic, bilateral external ears normal, nose normal. Eyes: EOMI, conjunctiva normal, no discharge. Neck: Normal range of motion, no stridor. Skin: Warm, dry, no erythema, no rash. Extremities: Bony tenderness on the medial malleolus of the right ankle, lateral malleolus swelling of the right ankle, PT pulses 2+ and symmetrical. Extremities otherwise no tenderness, no cyanosis, no clubbing, ROM intact, no edema. Neurologic: Alert and oriented x4, normal motor function, normal sensory function, no focal deficits noted. Current Patient Data: Vital Signs: Vital Signs Date Time Temp Pulse Resp B/P (MAP) Pulse Ox O2 Delivery O2 Flow Rate FiO2 08/18/21 18:30 98.3 84 16 138/80 (99) 95 Room Air 98.3 Radiology/Procedures: Radiology/Procedures: PROCEDURE: ANKLE RIGHT 3V Exam: Right ankle 3 views INDICATION: Rolled ankle yesterday TECHNIQUE: Frontal, lateral oblique views the right ankle Comparisons: None FINDINGS: Soft tissue swelling overlying the lateral malleolus. Bone mineralization is normal. Joint spaces are well-maintained. IMPRESSION: Soft tissue swelling overlying the lateral malleolus without underlying osseous abnormality identified. Electronically signed by: Jase Ma MD (08/18/2021 8:03 PM) [facility] Course & Med Decision Making: Course & Med Decision Making Pertinent Labs and Imaging studies reviewed. (See chart for details) Patient is a 31-year-old female who sustained a right ankle injury last night. Patient was unable to ambulate after the injury and has bony point tenderness on the medial malleolus. Plain films obtained. Plain films do not reveal any acute bony injury. Patient was placed in a stirrup splint and given Toradol. On reevaluation, patient states her pain is improved, but she is still unable to ambulate without significant pain. Patient was provided with crutches and podiatric follow-up instruction. Return precautions were provided. Patient understands and is agreeable to discharge plan. Dragon Disclaimer: David Disclaimer: This electronic medical record was generated, in whole or in part, using a voice recognition dictation system. Departure Departure Impression: Primary Impression: Sprain of unspecified ligament of right ankle, initial encounter Disposition: HOME / SELF CARE / HOMELESS Condition: IMPROVED Referrals: NO PCP (PCP) TAMMIE CHEN DPM Patient Instructions: Ankle Sprain, [id number], RICE - Routine Care for Injuries, [id number] Additional Instructions: EMERGENCY DEPARTMENT GENERAL DISCHARGE INSTRUCTIONS Thank you for coming to [facility] Emergency Department (ED) today and trusting us with you care. We trust that you had a positive experience in our Emergency Department. If you wish to speak to the department management, you may call the director at . YOUR FOLLOW UP INSTRUCTIONS ARE FOLLOWS: 1. Follow up with your primary care doctor. If you do not have a primary doctor, please ask for a resource list of physicians or clinics that may be able to assist you with follow up care. 2. The emergency provider has interpreted your imaging studies, if any were ordered. The radiology phone triage specialist also reviewed them. If there is a change in the findings, you will be notified in 48 hours when at all possible. 3. If a lab test or culture has been done, your results will be reviewed and you will be notified if you need a change in treatment. 4. Follow instructions verbalized to you and refer to the printouts if needed. ADDITIONAL INSTRUCTIONS AND INFORMATION: 1. Your care today has been supervised by a physician who is specially trained in emergency care. Many problems require more than one evaluation for a complete diagnosis and treatment. We recommend that you schedule your follow up appointment as recommended to ensure complete treatment of you illness or injury. If you are unable to obtain follow up care and continue to have a problem, or if your condition worsens, we recommend that you return to the ED. 2. We are not able to safely determine your condition over the phone nor are we able to give sound medical advice over the phone. For these safety reasons, if you call for medical advice we will ask you to come to the ED for further evaluation. 3. If you have any questions regarding these discharge instructions please call the ED at . SAFETY INFORMATION: In the interest of safety, wellness, and injury prevention; we encourage you to wear your seat belt, if you smoke; quite smoking, and we encourage family to use a protective helmet for bicycling and other sporting events that present an increased risk for head injury. IF YOUR SYMPTOMS WORSEN OR NEW SYMPTOMS DEVELOP, OR YOU HAVE CONCERNS ABOUT YOUR CONDITION; OR IF YOUR CONDITION WORSENS WHILE YOU ARE WAITING FOR YOUR FOLLOW UP APPOINTMENT; EITHER CONTACT YOUR PRIMARY CARE DOCTOR, THE PHYSICIAN WHOSE NAME AND NUMBER YOU WERE GIVEN, OR RETURN TO THE ED IMMEDIATELY. ARI DASH Aug 18, 2021 19:04
--- NOTE | 2021-08-18 20:05 | RAD ---
Exam: Right ankle 3 views INDICATION: Rolled ankle yesterday TECHNIQUE: Frontal, lateral oblique views the right ankle Comparisons: None FINDINGS: Soft tissue swelling overlying the lateral malleolus. Bone mineralization is normal. Joint spaces are well-maintained. IMPRESSION: Soft tissue swelling overlying the lateral malleolus without underlying osseous abnormality identifie d. Electronically signed by: Jase Ma MD (08/18/2021 8:03 PM) [facility]
== END 2021-08-18 20:25 | disposition home or self-care (01) ==
LOC: ER 18:13
DX: S93.401A Sprain of unspecified ligament of right ankle, initial encounter (principal); X50.9XXA Other and unspecified overexertion or strenuous movements or postures, initial encounter; Y93.89 Activity, other specified; Y92.89 Other specified places as the place of occurrence of the external cause; Y99.8 Other external cause status
CPT/HCPCS: 29515; 73610; 96372; 99283; J1885